=== PATIENT | male | born 1985 | race Caucasian/White ===

== ENCOUNTER 2018-11-12 15:02 | Emergency (ER) | payer BC ==
[2018-11-12 15:35] VITALS: BP 132/67
--- NOTE | 2018-11-12 16:03 | UC ---
Throat Pain/Nasal Hubert HPI - HPI Summary HPI Summary: 33-year-old male presents with 2 day history of tenderness and mild swelling to his left anterior cervical neck. Denies fever, chills, nasal congestion, sore throat, difficulty swallowing, cough, chest pain, or shortness of breath. - History of Current Complaint Chief Complaint: UCRespiratory Stated Complaint: SORE INSIDE LEFT SIDE OF THROAT Time Seen by Provider: 11/12/18 16:01 Hx Obtained From: Patient Pain Intensity: 2 - Allergies/Home Medications Allergies/Adverse Reactions: Allergies Allergy/AdvReac Type Severity Reaction Status Date / Time No Known Allergies Allergy Verified 11/12/18 15:31 Home Medications: Home Medications NK [No Home Medications Reported] 11/12/18 [History Confirmed 11/12/18] PMH/Surg Hx/FS Hx/Imm Hx Previously Healthy: Yes - Denies significant PMH - Surgical History Surgical History: Yes Surgery Procedure, Year, and Place: LEFT ANKLE-HARDWARE PLACED/REMOVED, 1 SCREW LEFT - Family History Known Family History: Positive: Non-Contributory - Social History Occupation: Employed Full-time Lives: With Family Alcohol Use: Rare Alcohol Amount: 'monthly' Substance Use Type: None Smoking Status (MU): Never Smoked Tobacco Review of Systems All Other Systems Reviewed And Are Negative: Yes Constitutional: Negative: Fever, Chills Skin: Negative: Rash Eyes: Negative: Drainage, Eye Redness ENT: Negative: Sore Throat, Ear Ache, Nasal Discharge, Sinus Congestion, Sinus Pain/Tenderness Respiratory: Negative: Shortness Of Breath, Cough Cardiovascular: Negative: Chest Pain Gastrointestinal: Positive: Negative Genitourinary: Positive: Negative Musculoskeletal: Positive: Negative Neurological: Positive: Negative Is Patient Immunocompromised?: No Physical Exam - Summary Physical Exam Summary: GENERAL APPEARANCE: Well developed, well nourished, alert and cooperative, and appears to be in no acute distress. EYES: Conjunctiva clear. No drainage. PERRL, EOM intact. Vision is grossly intact. EARS: External auditory canals and tympanic membranes clear, hearing grossly intact. NOSE: No nasal discharge. THROAT: Pharynx normal. No tonsilar inflammation, swelling, exudate, or lesions. Uvula midline. Oral cavity normal. Teeth and gingiva in good general condition. NECK: Neck supple. Single tender, mildly edematous left anterior cervical lymph node. CARDIAC: Normal S1 and S2. No S3, S4 or murmurs. Rhythm is regular. There is no peripheral edema, cyanosis or pallor. Extremities are warm and well perfused. Capillary refill is less than 2 seconds. Peripheral pulses intact. LUNGS: Clear to auscultation without rales, rhonchi, wheezing or diminished breath sounds. ABDOMEN: Positive bowel sounds. Soft, nondistended, nontender. No guarding or rebound. No masses or hepatosplenomegally. MUSKULOSKELETAL: ROM intact to all extremities. No joint erythema or tenderness. Normal muscular development. Normal gait. SKIN: Skin normal color, texture and turgor with no lesions or eruptions. Triage Information Reviewed: Yes Vital Signs: Initial Vital Signs Temp 97.6 F 11/12/18 15:29 Pulse 75 11/12/18 15:29 Resp 16 11/12/18 15:29 BP 132/67 11/12/18 15:29 Pulse Ox 98 11/12/18 15:29 Vital Signs Reviewed: Yes Throat Pain/Nasal Course/Dx - Course Course Of Treatment: 33-year-old male presents with 2 day history of tenderness and mild swelling to his left anterior cervical neck. Denies fever, chills, nasal congestion, sore throat, difficulty swallowing, cough, chest pain, or shortness of breath. Afebrile. Vital signs stable. Exam reveals an adult male in no acute distress with a tender and mildly swollen left anterior cervical lymph node and otherwise unremarkable exam. I am recommending watchful waiting and symptomatic treatment at this time as his symptoms are likely viral in origin. Patient is to return here or follow-up with a primary care provider if symptoms do not improve. Anticipatory guidance and warning symptoms were reviewed with the patient. Verbalizes understanding and agrees with plan of care. - Differential Dx/Diagnosis Differential Diagnosis/HQI/PQRI: Peritonsillar Abscess, Pharyngitis, Tonsillitis , URI Provider Diagnosis: Swelling of lymph node Discharge - Sign-Out/Discharge Documenting (check all that apply): Patient Departure All imaging exams completed and their final reports reviewed: No Studies - Discharge Plan Condition: Stable Disposition: HOME Patient Education Materials: Lymphadenopathy (ED) Referrals: No Primary Care Phys,NOPCP [Primary Care Provider] - [facility] [place] [facility] [Outside] Additional Instructions: I suspect that your symptoms are from a swollen lymph node. Several things can cause lymph nodes to swell including bacterial and viral infections. Since you are not running fever and your exam was overall unremarkable I would recommend watchful waiting at this time. Take acetaminophen (Tylenol) or ibuprofen (Advil, Motrin) according to directions as needed for pain. Return here or follow up with primary care in 7 days if symptoms persist. I have provided you with the contact information for the [facility] physician referral service if you need assistance with establishing with a provider. Seek immediate medical attention in the emergency room if you develop fever greater than 100.5 F, have severe sore throat, difficulty swallowing, difficulty breathing, or any worsening of symptoms. - Billing Disposition and Condition Condition: STABLE Disposition: Home
== END 2018-11-12 16:30 | disposition home or self-care (01) ==
LOC: UCCORT 15:02
DX: R59.0 Localized enlarged lymph nodes (principal)
CPT/HCPCS: 99201; G0463

== ENCOUNTER 2019-09-08 09:08 | Emergency (ER) | payer BC ==
[2019-09-08 09:28] VITALS: BP 140/73
[2019-09-08] MEDS ORDERED: Tetracaine 0.5% OPTH.SOL 4 ML* 1 DROP BTL ONE (09:44)
[2019-09-08] MEDS ORDERED: Fluorescein Sodium TOPICAL* 1 MG TEST STRIP OPHTHALMIC ONE (09:44)
--- NOTE | 2019-09-08 10:20 | UC ---
Eye Complaint HPI - HPI Summary HPI Summary: 34-year-old male presents with a eye complaint. 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 Speck at ten o' clock right iris. the symptoms occurred most likely on Thursday while he was either at work or at home. Symptoms have persisted and worsened so he is here for evaluation. - History of Current Complaint Chief Complaint: UCEye Stated Complaint: RIGHT EYE COMPLAINT Time Seen by Provider: 09/08/19 09:43 Hx Obtained From: Patient Onset/Duration: Sudden Onset Severity Initially: Moderate Severity Currently: Moderate Pain Intensity: 0 Aggravating Factor(s): Blinking Alleviating Factor(s): Nothing Associated Signs And Symptoms: Positive: Drainage (Clear) Related History: Foreign Body - Allergies/Home Medications Allergies/Adverse Reactions: Allergies Allergy/AdvReac Type Severity Reaction Status Date / Time bee venom protein (honey bee) Allergy Hives Verified 09/08/19 09:24 PMH/Surg Hx/FS Hx/Imm Hx Previously Healthy: Yes - Surgical History Surgical History: Yes Surgery Procedure, Year, and Place: LEFT ANKLE-HARDWARE PLACED/REMOVED, 1 SCREW LEFT - Family History Known Family History: Positive: Non-Contributory - Social History Occupation: Employed Full-time Alcohol Use: Occasionally Alcohol Amount: 'monthly' Substance Use Type: None Smoking Status (MU): Former Smoker - Immunization History Most Recent Tetanus Shot: Unknown Review of Systems All Other Systems Reviewed And Are Negative: Yes Eyes: Positive: Drainage, Eye Redness. Negative: Blurred Vision, Diplopia Is Patient Immunocompromised?: No Physical Exam Triage Information Reviewed: Yes Appearance: Well-Appearing, No Pain Distress, Well-Nourished Vital Signs: Initial Vital Signs Temp 98.7 F 09/08/19 09:22 Pulse 52 09/08/19 09:22 Resp 16 09/08/19 09:22 BP 140/73 09/08/19 09:22 Pulse Ox 100 09/08/19 09:22 Vital Signs Reviewed: Yes Eyes: Positive: Conjunctiva Inflamed, Other: - small black foreign body embedded in the cornea approximately 10 AM. Negative: Discharge ENT Exam: Normal Neck exam: Normal Neck: Positive: 1 Respiratory Exam: Normal Cardiovascular Exam: Normal Musculoskeletal Exam: Normal Neurological Exam: Normal Psychological Exam: Normal Skin Exam: Normal Procedures - Eye Procedure Right Alcaine Drops Administered: Yes Eye FB Removal: removal w/ cotton swab - attempted removal but unsuccessful Eye Complaint Course/Dx - Course Course Of Treatment: Patient with foreign body in the right eye which is been present for approximately 3 days. The foreign body is embedded. I attempted removal with a constant swab but with no success. Patient tolerated procedure fine. Foreign body still present in. Ophthalmology was called to have urgent evaluation and patient will go directly to ophthalmology for evaluation and treatment. He is aware and agreeable to plan. - Differential Dx/Diagnosis Differential Diagnosis/HQI/PQRI: Corneal Abrasion, Penetrating Injury, Uveitis Provider Diagnosis: Foreign body of right eye Discharge ED - Sign-Out/Discharge Documenting (check all that apply): Patient Departure All imaging exams completed and their final reports reviewed: No Studies - Discharge Plan Condition: Good Disposition: HOME Patient Education Materials: Eye Foreign Body (ED) Referrals: No Primary Care Phys,NOPCP [Primary Care Provider] - If Needed (as we discussed please go directly to pastry cook for your appointment) - Billing Disposition and Condition Condition: GOOD Disposition: Home
== END 2019-09-08 10:46 | disposition home or self-care (01) ==
LOC: UCCORT 09:08
DX: T15.91XA Foreign body on external eye, part unspecified, right eye, initial encounter (principal); Z91.030 Bee allergy status; Z87.891 Personal history of nicotine dependence; X58.XXXA Exposure to other specified factors, initial encounter; Y92.9 Unspecified place or not applicable
CPT/HCPCS: 99212; A9270-GY; G0463